=== PATIENT | female | born 1955 | race Caucasian/White ===

== ENCOUNTER 2017-12-13 10:23 | Emergency (ER) | payer MEDICAID, OTHER ==
[2017-12-13 10:38] VITALS: BP 129/78
--- NOTE | 2017-12-13 12:02 | ED Physician Documentation ---
History of Present Illness - Stated complaint Stated Complaint: R ARM SWELLING - Chief complaint Chief Complaint: Ext Problem - History obtained from History obtained from: Patient - History of Present Illness Timing: How many days ago (3) Pain level max: 3 Pain level now: 1 Quality: redness Radiates to: no radiation Improved by: nothing Worsened by: nothing - Additonal information Additional information: Pt states noticed redness of her right elbow 3 days ago then redness increased with mild tenderness and increased in warmth. Denies any injury and can't recall any insect bites. Denies any fever or other associated symptoms. 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 Review of Systems Ten Systems: 10 systems reviewed and negative Constitutional: denies: Fever, Chills, Myalgias Cardiac: denies: Chest pain / pressure Respiratory: denies: Dyspnea Skin: denies: Rash, Lesions, Abrasion (s), Bite / sting Musculoskeletal: denies: Extremity pain, Joint pain, Extremity swelling, Joint swelling Neurologic: denies: Focal weakness, Numbness PD PAST MEDICAL HISTORY - Past Medical History Past Medical History: No Musculoskeletal: Other (MRSA of her leg) - Present Medications Home Medications: Ambulatory Orders Medication Instructions Recorded Confirmed Cephalexin [Keflex] 500 mg PO Q6H #28 capsule 12/13/17 Sulfamethox/Trimeth 800/160 1 each PO BID #14 tablet 12/13/17 [Bactrim Ds 800/160] - Allergies Allergies/Adverse Reactions: Allergies Allergy/AdvReac Type Severity Reaction Status Date / Time No Known Drug Allergies Allergy Verified 12/13/17 10:37 - Living Situation Living Situation: reports: With family Living Arrangement: reports: At home - Social History Smoking Status: Current every day smoker - Family History Family history: reports: Non contributory - Immunizations Immunizations are current?: Yes PD ED PE NORMAL - Vitals Vital signs reviewed: Yes - General General: Alert and oriented X 3, No acute distress, Well developed/nourished - HEENT HEENT: Moist mucous membranes - Neck Neck: Supple, no meningeal sign - Cardiac Cardiac: RRR, No murmur - Respiratory Respiratory: Clear bilaterally - Abdomen Abdomen: Normal bowel sounds, Soft, Non tender - Derm Derm: Normal color, Warm and dry, No rash, Other (Right proximal forearm medial aspect with mild erythema that is warm to touch but non tender and full ROM. Right elbow with 1 pinpoint wound and 1 scabbed 2mm wound; FROM; no erythema. Sensation intact. Cap refill <2 sec. Pulses +2 ) - Extremities Extremities: No deformity, No tenderness to palpate, Normal ROM s pain, No edema - Neuro Neuro: Alert and oriented X 3 - Psych Psych: Normal mood, Normal affect Results - Vitals Vitals: Vital Signs - 24 hr 12/13/17 10:34 Temperature 36.5 C Heart Rate 93 Respiratory 16 Rate Blood Pressure 129/78 O2 Saturation 95 PD MEDICAL DECISION MAKING - ED course Complexity details: considered differential (skin infection, MRSA, cellulitis, tendinitis), d/w patient (Pt refused xrays and only wants antibiotics. NAD. nontoxic looking. Will discharge on Keflex and Bactrim. Instructions on what to watch for worsening skin infection and when to return to the E.R. Pt expressed understanding of outpatient treatment plan.) Departure - Departure Disposition: 01 Home, Self Care Clinical Impression: Cellulitis Qualifiers: Site of cellulitis: extremity Site of cellulitis of extremity: upper extremity Laterality: right Qualified Code(s): L03.113 - Cellulitis of right upper limb Instructions: ED Infec Skin Cellulitis Follow-Up: Provider,Other [Primary Care Provider] - Within 3 Days Prescriptions: Cephalexin [Keflex] 500 mg PO Q6H #28 capsule Sulfamethox/Trimeth 800/160 [Bactrim Ds 800/160] 1 each PO BID #14 tablet Comments: TAKE THE ANTIBIOTICS PRESCRIBED. IF THE SKIN INFECTION IS WORSE SUCH STREAKING ON YOUR VEINS AND FEVER OR INCREASING SWELLING RETURN TO THE E.R. Discharge Date/Time: 12/13/17 12:19
== END 2017-12-13 12:19 | disposition home or self-care (01) ==
LOC: ED 10:23
DX: L03.113 Cellulitis of right upper limb (principal); F17.200 Nicotine dependence, unspecified, uncomplicated
CPT/HCPCS: 99283